=== PATIENT | male | born 1960 | race Caucasian/White ===

== ENCOUNTER 2017-02-23 10:06 | Inpatient (IN) | payer OTHER ==
[~2017-02-23] VITALS: Ht 182.9 cm; Wt 107.1 kg
[2017-02-23] MEDS ORDERED: APIX2.5T PO (10:25)
[2017-02-23 10:51] LABS: BLOOD UREA NITROGEN 9 mg/dL (7-18)
[2017-02-23 10:55] LABS: IS PT STATUS REG ER OR PRE ER? YES
[2017-02-23 14:21] VITALS: BP 153/81
[2017-02-23] MEDS ORDERED: ASPIRIN 325 MG TABLET EC PO ONE (14:30)
[2017-02-23] MEDS ORDERED: morphine SULFATE 10 MG/ML, 1ML IV PRN (14:30)
[2017-02-23] MEDS ORDERED: NITROGLYCERIN SINGLE TAB 0.4 MG SL PRN (14:30)
[2017-02-23] MEDS ORDERED: ONDANSETRON 2MG/ML, 2ML IVP PRN (14:30)
[2017-02-23] MEDS ORDERED: ACETAMINOPHEN 650 MG/20.3 ML UDC PO PRN (14:30)
[2017-02-23] MEDS ORDERED: KETOROLAC 30 MG/1 ML IVPush PRN (15:00)
[2017-02-23] MEDS: NICOTINE 14MG/24 HR PATCH.TD24 TD SCH (15:35)
[2017-02-23 16:11] LABS: IS PT STATUS REG ER OR PRE ER? NO
[2017-02-23] MEDS ORDERED: OMNIPAQUE 350 MG/ML, 100ML BOTTLE ONE (17:29)
[2017-02-23] MEDS: SODIUM CHLORIDE FLUSH 10ML SYR IVF SCH (20:01)
[2017-02-23] MEDS: APIXABAN 5 MG TABLET PO SCH (20:01)
[2017-02-23 20:03] VITALS: BP 138/81
[2017-02-23 22:48] LABS: IS PT STATUS REG ER OR PRE ER? NO
[2017-02-23] MEDS ORDERED: PNEUMOCOCCAL 23 VACCINE IM-VACC ONE (23:00)
[2017-02-24 01:20] VITALS: BP 127/84
[2017-02-24] MEDS ORDERED: ASPIRIN 325 MG TABLET EC PO SCH (06:00)
[2017-02-24 07:26] VITALS: BP 122/56
[2017-02-24] MEDS: APIXABAN 5 MG TABLET PO SCH ×2 (08:07→20:36)
[2017-02-24] MEDS: SODIUM CHLORIDE FLUSH 10ML SYR IVF SCH ×2 (08:07→20:37)
[2017-02-24] MEDS ORDERED: REGADENOSON 0.4 MG/5 ML SYRINGE ONE (08:30)
[2017-02-24 14:35] VITALS: BP 139/73
[2017-02-24] MEDS: NICOTINE 14MG/24 HR PATCH.TD24 TD SCH (15:33)
[2017-02-24 18:33] VITALS: BP 136/77
[2017-02-24] MEDS ORDERED: ATORVASTATIN 20 MG TABLET PO SCH (21:00)
[2017-02-25 01:39] VITALS: BP 125/72
[2017-02-25 05:54] VITALS: BP 120/79
[2017-02-25] MEDS ORDERED: METOPROLOL SUCCINATE 25 MG TAB.ER.24H PO SCH (06:00)
[2017-02-25] MEDS ORDERED: ASPIRIN 81 MG TABLET EC PO SCH (06:00)
[2017-02-25] MEDS ORDERED: SODIUM CHLORIDE 0.9% 1,000 ML IV ONE (07:51)
[2017-02-25 08:02] VITALS: BP 128/76
[2017-02-25] MEDS ORDERED: FENTANYL PF 100 MCG/2ML ONE (08:44)
[2017-02-25] MEDS ORDERED: LIDOCAINE 2%, 20ML ONE (08:45)
[2017-02-25] MEDS ORDERED: MIDAZOLAM 1 MG/ML, 5ML ONE (08:45)
[2017-02-25] MEDS ORDERED: VERAPAMIL 2.5 MG/ML, 2ML ONE (08:45)
[2017-02-25] MEDS ORDERED: BIVALIRUDIN 250 MG ONE (08:45)
[2017-02-25] MEDS ORDERED: TICAGRELOR 90 MG TABLET ONE (08:45)
[2017-02-25] MEDS ORDERED: HEPARIN 1,000 UNITS/ML, 10ML ONE (08:45)
[2017-02-25] MEDS: SODIUM CHLORIDE FLUSH 10ML SYR IVF SCH (08:55)
[2017-02-25] MEDS: NICOTINE 14MG/24 HR PATCH.TD24 TD SCH (08:55)
[2017-02-25] MEDS ORDERED: ADENOSINE 90 MG/30 ML ONE (09:52)
[2017-02-25] MEDS ORDERED: SODIUM CHLORIDE 0.9% 1,000 ML IV SCH (10:15)
[2017-02-25] MEDS ORDERED: ATOR20TA9 PO (12:36)
[2017-02-25] MEDS ORDERED: ASPI-621 PO (12:36)
[2017-02-25] MEDS ORDERED: METO25TA91 PO (12:36)
[2017-02-25] MEDS ORDERED: APIX5TAB PO (12:36)
== END 2017-02-25 15:04 | disposition home or self-care (01) | DRG 287 ==
LOC: ED 11:47 → EDIP 11:48 → ED 12:03 → 5SO 14:03
PROVIDERS: ADMIT Family Medicine; ATTEND Family Medicine
PROC: 4A023N7 Measurement of Cardiac Sampling and Pressure, Left Heart, Percutaneous Approach (ICD-10-PCS; principal; 2017-02-25)
PROC: B2151ZZ Fluoroscopy of Left Heart using Low Osmolar Contrast (ICD-10-PCS; 2017-02-25)
PROC: B2111ZZ Fluoroscopy of Multiple Coronary Arteries using Low Osmolar Contrast (ICD-10-PCS; 2017-02-25)
DX: I25.10 Atherosclerotic heart disease of native coronary artery without angina pectoris (principal); I82.402 Acute embolism and thrombosis of unspecified deep veins of left lower extremity; D68.69 Other thrombophilia; Z79.01 Long term (current) use of anticoagulants; F17.210 Nicotine dependence, cigarettes, uncomplicated; Z83.3 Family history of diabetes mellitus; Z82.49 Family history of ischemic heart disease and other diseases of the circulatory system; E78.5 Hyperlipidemia, unspecified; I10 Essential (primary) hypertension; D75.89 Other specified diseases of blood and blood-forming organs; K21.9 Gastro-esophageal reflux disease without esophagitis; I45.4 Nonspecific intraventricular block; Z79.82 Long term (current) use of aspirin
CPT/HCPCS: 36415; 71010; 71275; 78452; 80048; 80061; 82040; 82607; 82746; 84443; 84484; 85025; 85610; 85730; 90732; 93005; 93017; 93458; 93571; 99285; C1894; J0153; J0583; J1644; J2250; J2785; J3010; J3490; Q9967; A9502; C1769; C1887; C9898; J7030

== ENCOUNTER → 2018-01-14 | Outpatient (CLI) | payer OTHER ==
[~2018-01-14] MED LIST: APIX2.5T PO; APIX5TAB PO; ASPI-621 PO; ATOR20TA9 PO; METO25TA91 PO
== END | disposition home or self-care (01) ==
LOC: CVU 07:07
PROVIDERS: ATTEND Internal Medicine Cardiovascular Disease
DX: K21.9 Gastro-esophageal reflux disease without esophagitis (principal); I83.92 Asymptomatic varicose veins of left lower extremity; Z86.718 Personal history of other venous thrombosis and embolism
CPT/HCPCS: 93970

== ENCOUNTER 2019-09-09 12:23 | Outpatient (CLI) | payer BC ==
[~2019-09-09 12:23] MED LIST changes: -ASPI-621 PO; +ASPI81TA45 PO; +ATOR20TA37 PO; -ATOR20TA9 PO
== END 2019-09-09 23:59 | disposition home or self-care (01) ==
LOC: CVU 12:23
PROVIDERS: ATTEND Family Medicine
DX: M79.605 Pain in left leg (principal); I10 Essential (primary) hypertension; E78.5 Hyperlipidemia, unspecified; Z79.01 Long term (current) use of anticoagulants; Z72.0 Tobacco use
CPT/HCPCS: 93922

== ENCOUNTER → 2019-09-12 | Outpatient (CLI) | payer BC | END | disposition home or self-care (01) | LOC: CFH 10:17 | PROVIDERS: ATTEND Registered Nurse | DX: Z57.39 Occupational exposure to other air contaminants (principal); R05 Cough; R06.02 Shortness of breath; I10 Essential (primary) hypertension; F17.200 Nicotine dependence, unspecified, uncomplicated; Z68.33 Body mass index [BMI] 33.0-33.9, adult; E66.9 Obesity, unspecified | CPT/HCPCS: 71250 ==